=== PATIENT | male | born 1990 ===

== ENCOUNTER 2024-02-01 13:14 | Emergency (ER) | payer OTHER ==
[2024-02-01] MEDS ORDERED: EPINEPHrine 1:10,000 [1 MG/10 ML] SYRINGE IVP ONE (13:15)
[2024-02-01] MEDS ORDERED: SODIUM BICARBONATE [ADULT] 8.4% 50 MEQ/50 ML SYRINGE IVP ONE (13:15)
[2024-02-01] MEDS ORDERED: DEXTROSE 50%-WATER 25 GM/50 ML SYRINGE IVP ONE (13:15)
[2024-02-01] MEDS ORDERED: CALCIUM GLUCONATE 100 MG/ML 10 ML IVP ONE (13:15)
[2024-02-01] MEDS ORDERED: NALOXONE HCL 1 MG/ML 2 ML SYRINGE IM ONE (13:15)
== END 2024-02-01 15:55 ==
LOC: EMS 13:14
DX: I46.9 Cardiac arrest, cause unspecified (principal)
CPT/HCPCS: 92950; 99285; J0610; J0171; J3490; J2310